=== PATIENT | male | born 1995 | race Two or more races ===

== ENCOUNTER 2018-05-23 21:02 | Emergency (ER) | payer MEDICAID ==
[~2018-05-23] VITALS: Ht 190.5 cm; Wt 120.0 kg
--- NOTE | 2018-05-23 21:28 | NUR ---
PT STATES NOT FEELING SI/SA TODAY UNTIL "BEING PEER PRESSURED" INTO TAKING AN UNKNOWN SUBSTANCE OF AN UNKNOWN AMOUNT. STATES "I WANTED TO KILL MYSELF WITH WHATEVER I COULD FIND." JOSÉ STATES PT WAS ATTEMPTING " BY [employer] WEBSITE DEVELOPER" AND WAS TASED IN L BUTTOCK. NO RESIDUAL BOBBY NOTED IN BUTTOCK. PT APPEARS TO BE COOPERATIVE HERE IN THE ED. PT DENIES SI/SA AT THIS TIME. PT STATES "FEELING INVINCIBLE". NO OTHER MEDICAL COMPLAINTS. ALL MONITORING APPLIED. VSS. CALL LIGHT WITHIN REACH.
--- NOTE | 2018-05-23 21:39 | NUR ---
PT IN 4 POINT RESTRAINTS AT THIS TIME BECAUSE COMBATIVE W/ COMBATS AND AGGRESSIVE TO OTHER HEALTH CARE WORKERS PRIOR TO THIS RN CARE. PT AGREES TO BE COOPERATIVE AND APPEARS PLEASANT, BUT 4 POINT RESTRAINTS MAINTAINED AT THIS TIME. RESTRAINT PAPERWORK ACCOMPLISHED.
--- NOTE | 2018-05-23 21:44 | NUR ---
PT DENYING ALL SI/HI AT THIS TIME.
[2018-05-23 22:07] LABS: BASOPHILS # (AUTO) 0.05 x10^3/uL (0-0.1); BASOPHILS % (AUTO) 1 % (0-1); EOSINOPHILS # (AUTO) 0.21 x10^3/uL (0-0.4); EOSINOPHILS % (AUTO) 3 % (1-7); LYMPHOCYTES # (AUTO) 1.88 x10^3/uL (1-3.4); LYMPHOCYTES % (AUTO) 27 % (22-44); MD NO; MEAN CORPUSCULAR HEMOGLOBIN 30.2 pg (27.5-34.5); MEAN CORPUSCULAR HGB CONC 34.4 g/dL (33.2-36.2); MEAN CORPUSCULAR VOLUME 87.8 fL (81-97); MEAN PLATELET VOLUME 7.8 fL (7.4-10.4); MONOCYTES % (AUTO) 6 % (2-9); NEUTROPHILS # (AUTO) 4.52 x10^3/uL (1.8-6.8); NEUTROPHILS % (AUTO) 64 % (42-75); PLATELET COUNT 291 x10^3/uL (130-400); RED BLOOD COUNT 4.86 x10^6/uL (4.38-5.82); RED CELL DISTRIBUTION WIDTH 12.5 % (9.4-14.8)
[2018-05-23 22:16] LABS: AMPHETAMINE SCREEN, URINE Negative (Negative); BARBITURATE SCREEN, URINE Negative (Negative); BENZODIAZEPINE SCREEN, URINE Negative (Negative); CANNABINOID SCREEN, URINE Negative (Negative); COCAINE SCREEN, URINE Negative (Negative); METHADONE SCREEN, URINE Negative (Negative); OPIATE SCREEN, URINE Negative (Negative)
[2018-05-23 22:18] LABS: ALANINE AMINOTRANSFERASE 42 U/L (12-78); ALBUMIN 3.8 g/dL (3.4-5.0); ANION GAP 8 mmol/L (5-15); CALCIUM 8.5 mg/dL (8.5-10.1); CHLORIDE 113 mmol/L (98-107); CREATININE 1.04 mg/dL (0.7-1.3); SALICYLATE LEVEL < 1.7 mg/dL (2.8-20.0)
[2018-05-23 22:19] LABS: ACETAMINOPHEN < 2 mcg/mL (10-30)
[2018-05-23 22:21] LABS: ALKALINE PHOSPHATASE 73 U/L (45-117); BILIRUBIN,TOTAL 0.3 mg/dL (0.2-1.0)
[2018-05-23 22:22] LABS: TOTAL PROTEIN 7.5 g/dL (6.4-8.2)
--- NOTE | 2018-05-23 22:54 | NUR ---
PT GIVEN JAYCEE CRACKERS AND SPRITE AT THIS TIME. PT REMAINS PLEASANT AND COOPERATIVE W/ STAFF. VSS. NO OTHER IMMEDIATE NEEDS.
[2018-05-23 23:17] VITALS: BP 143/60
--- NOTE | 2018-05-24 00:47 | NUR ---
PT SLEEPING COMFORTABLY ON GURNEY. NADN. RR EVEN AND ULABORED. SITTER IN HALLWAY.
--- NOTE | 2018-05-24 02:02 | NUR ---
MD WOULD LIKE PT TO BE D/C W/ FAMILY OR FRIEND. PT STATES HE DOES NOT KNOW WHERE PHONE AND WALLET WENT. PT DID NOT ARRIVE TO ED W/ PHONE OR WALLET. PT URGED TO CONTACT [facility] JARAMILLO AND HIRAL FOR POTENTIAL OF LOST ITEMS. MD AWARE OF PT INABILITY OF FRIENDS AND FAMILY TO PICK HIM UP. AWAITING RECHECK.
== END 2018-05-24 03:59 | disposition home or self-care (01) ==
LOC: ED 05-24 03:51
DX: S10.93XA Contusion of unspecified part of neck, initial encounter (principal); F16.122 Hallucinogen abuse with intoxication with perceptual disturbance; F19.951 Other psychoactive substance use, unspecified with psychoactive substance-induced psychotic disorder with hallucinations; Y04.0XXA Assault by unarmed brawl or fight, initial encounter; Y93.89 Activity, other specified; Y92.89 Other specified places as the place of occurrence of the external cause; Y99.8 Other external cause status
CPT/HCPCS: 36415; 80053; 80307; 80329; 85025; 93005; 99284; G0480